=== PATIENT | female | born 1960 | race Asian ===

== ENCOUNTER 2025-07-05 14:58 | Emergency (ER) | payer OTHER, MEDICARE, SELFPAY ==
[2025-07-05] VITALS (32 sets, daily range): BP systolic 131–160; BP diastolic 68–86; PULSE 80–104; RESP 9–23; TEMP 36.6; O2SAT 90–97
--- NOTE | ~2025-07-05 | CT_ITS ---
EXAMINATION: CTA chest PE protocol, 07/05/2025 16:30 GIS CONSULTANT HISTORY: elev dimer COMPARISON: No comparisons available. TECHNIQUE: CTA examination is obtained with contrast CTA examination technique is performed with arterial phase of contrast-enhancement. 3-D reconstruction with thin MIP axial and MPR coronal imaging is provided Isovue 300, 92cc injected IV. One or more of the following dose reduction techniques were used: automated exposure control, adjustment of the mA and/or kV according to patient size, use of iterative reconstruction technique. FINDINGS: No significant coronary calcification is present ([id number]) LUNGS: Contrast bolus is adequate, there is no pulmonary embolism identified. No tracheomalacia. No bronchiectasis. Minimal emphysematous changes. No significant pulmonary fibrotic changes.Motion artifact limits evaluation. HEART AND PERICARDIUM: Within normal limits. AORTA: Normal caliber aorta.. PULMONARY ARTERIES: No pulmonary embolism ADENOPATHY/MEDIASTINUM: None. LIMITED VIEWS OF THE ABDOMEN: Left kidney is partially imaged probable renal cyst 4 x 4 cm. OSSEOUS STRUCTURES: No sclerotic or lytic lesions. No acute rib fractures. OVERLYING SOFT TISSUES: Unremarkable. THYROID: The thyroid is unremarkable. IMPRESSION: 1. Negative for pulmonary embolism. No acute process Reviewed, dictated and finalized at location P. CONSULTANT
--- NOTE | ~2025-07-05 | CT_ITS ---
EXAMINATION: CT brain wo con, 07/05/2025 15:45 HEALTH CARE MARKETING MANAGER HISTORY: ams COMPARISON: No comparisons available. Technique: Axial images obtained of the brain without contrast. One or more of the following dose reduction techniques were used: automated exposure control, adjustment of the mA and/or kV according to patient size, use of iterative reconstruction technique. Findings: No acute infarct or parenchymal hemorrhage. No abnormal mass or mass effect. No midline shift. No extra-axial fluid collections. No hydrocephalus. Mastoid air cells unremarkable. Sinuses and orbits unremarkable. No acute fracture. No significant facial or scalp soft tissue swelling evident. No radiopaque foreign body is seen. Impression: 1.No acute intracranial abnormality. Reviewed, dictated and finalized at location P. TH CARE MARKETING MANAGER Impression: 1.No acute intracranial abnormality.
--- NOTE | ~2025-07-05 | XR_ITS ---
EXAMINATION: XR chest 1V portable COMPARISON: No comparisons available. HISTORY: ams FINDINGS: The lungs are clear, no effusion. No pneumothorax. Heart is normal size. Mediastinal and hilar contours are within normal limits. Bony thorax no acute abnormality. Miscellaneous: None Impression: No acute cardiopulmonary abnormality. Reviewed, dictated and finalized at location P. ULAR RIPSAW OPERATOR Impression: No acute cardiopulmonary abnormality.
--- NOTE | 2025-07-05 15:18 | PC.NURSE ---
RN spoke with Dr. Castaneda office and got information on patient's medical history, allergies, and husbands information. They state patient was suppose to come in today for an appointment, when patient did show up they canceled.
--- NOTE | 2025-07-05 15:20 | ECG_ITS ---
Test Date: 2025-07-05 15:29:54 Measurements Intervals [place] Rate: 85 P: 73 WY: 224 QRS: 70 QRSD: 82 T: 73 QT: 351 QTc: 420 Interpretive Statements SINUS RHYTHM WITH FIRST DEGREE AV BLOCK BASELINE ARTIFACT- I, II, III, AVR, AVL, AVF, V1-V2 BORDERLINE ECG No previous ECG available for comparison Electronically Signed On 07-05-2025 15:52:07 REAL ESTATE LOAN PROCESSOR by Matt Kwon D.O.
--- NOTE | 2025-07-05 15:21 | ED.SYNCOPE ---
HPI - Syncope General Chief Complaint: Syncope Stated Complaint: unresponsive in car. Time Seen by Provider: 07/05/25 15:00 Source: patient Mode of arrival: EMS Limitations: no limitations History of Present Illness HPI narrative: Patient is a 65-year-old female that was driving her car to see the doctor for not feeling good today and was found unresponsive in her car at a stop sign. Blood sugar on the scene was normal. Vital signs were stable. She slowly became more coherent as time went on in the emergency room. She did appear to a soil herself with urine and stool. Seizure was not witnessed but suggested possibly. No seizure history. Patient has been having altered mental status she showed up to the hospital. She became more clear over time but then started to deteriorate again by the evening. No back pain or retention of stool or urine. Her urinary loss or stool loss was due to on control of her system from likely a seizure activity. MD complaint: loss of consciousness and collapsed Onset (ago): minute(s) (Thirty) Duration of episode: 1 -: minutes(s) Description of event: incontinence Prodromal symptoms: lightheaded Witnessed: No Context: at rest Injuries sustained associated with event: none Current symptoms: none Treatments prior to arrival: none Related Data Allergies Allergy/AdvReac Type Severity Reaction Status Date / Time bee venom protein (honey bee) Allergy Severe Anaphylaxis Verified 07/05/25 15:19 Sulfa (Sulfonamide Allergy Severe Rash Verified 07/05/25 15:19 Antibiotics) Review of Systems Review of Systems: All systems reviewed & are unremarkable except as noted in HPI and below Constitutional: Constitutional: Reports no additional constitutional complaints Eyes: Eyes: Reports no additional eye complaints ENT: Reports system reviewed and no additional complaints, except as documented Cardiovascular: Cardiovascular: Reports no additional cardiovascular complaints Respiratory: Respiratory: Reports no additional respiratory complaints Gastrointestinal: Gastrointestinal: Reports no additional gastrointestinal complaints Genitourinary: Genitourinary: Reports no additional female genitourinary complaints Musculoskeletal: Musculoskeletal: Reports no additional musculoskeletal complaints Integumentary/Breasts: Skin/Breast: Reports system reviewed and no additional complaints, except as docu Neurologic: Reports system reviewed and no additional complaints, except as documented Psychiatric: Psychiatric: Reports no additional psychiatric complaints Endocrine: Endocrine: Reports no additional endocrine complaints Hematologic/Lymphatic: Hematologic/Lymphatic: Reports no additional hematologic/lymphatic complaints Allergic/Immunologic: Allergic/Immunologic: Reports no additional allergic/immunologic complaints Exam Const: General: healthy appearing Nutritional Appearance: well nourished Orientation/consciousness: patient oriented x3 Limitations: altered mental status HENMT: Head: normal to inspection Ears: external ears normal Face/Nose/Sinus: Normal external nose present Eyes: Conjunctivae: conjunctivae normal Pupils: Equal, round and reactive pupils present EOM: EOMs intact bilaterally Neck: Neck: normal visual inspection, no lymphadenopathy and no meningeal signs Chest: Chest palpation & inspection: abnormal inspection of the chest Resp: Effort & Inspection: normal respiratory effort, not labored and no retractions Auscultation: clear to auscultation bilaterally, no crackles and no rales Cardio: Rate: regular rate Rhythm: regular rhythm Heart sounds: no murmurs GI: Inspection: non-distended GI Palp: Yes Soft to palpation, No Tenderness to palpation present (GI), No Guarding due to palpation present (GI), Yes Rigid due to palpation, Yes Hernia present, Yes Palpable mass present and Yes Rebound tenderness present Auscultation: normal bowel sounds and Hypoactive bowel sounds present : General: Yes bladder normal to palpation Back/Spine/Pelvis: Back: no CVA tenderness Skin: General skin exam: normal color Rashes: no rashes Wounds: wound noted Neuro: General: patient oriented x3, moves all extremities, no meningeal signs, no focal motor deficits and CN's II-XI intact bilaterally Cranial nerves: Yes Nystagmus not present Speech: normal speech Gait exam (Neuro): Normal gait present Other: Fast is negative, NIH score is 0, GCS 15 Extrem: General: normal to inspection Psych: Mental Status: mental status grossly normal Affect: normal affect Attitude: cooperative Course Vital Signs Vital signs: Vital Signs Temperature 36.6 C 07/05/25 14:58 Pulse Rate 98 07/05/25 14:58 Respiratory Rate 22 H 07/05/25 14:58 Blood Pressure 147/78 H 07/05/25 14:58 Pulse Oximetry 93 07/05/25 14:58 Oxygen Delivery Room Air 07/05/25 14:58 Temperature 36.6 C 07/05/25 14:58 Pulse Rate 85 07/05/25 18:50 Respiratory Rate 13 07/05/25 18:50 Blood Pressure 148/76 H 07/05/25 18:50 Pulse Oximetry 93 07/05/25 18:50 Oxygen Delivery Room Air 07/05/25 14:58 Discharge Plan Discharge Clinical Impression: Acute dehydration, Acute UTI, AMS (altered mental status), Syncope and collapse Patient Disposition: Home Condition: Stable Instructions: Antibiotic Form, Dehydration (ED), Syncope (ED), Altered Mental Status (ED) Patient Language: [place] Prescriptions: New ciprofloxacin HCl [Cipro] 500 mg tablet 500 mg PO BID 7 Days Qty: 14 0RF Follow-up/Referrals: Leonel,MD Satinder [Primary Care Provider, [facility]] Time of Disposition: 19:02 [facility] Narrative Medical decision making narrative: Patient is a 65-year-old female with syncope and altered mental status. We will do a cardio neurogenic workup at this time. After long discussion with the family at bedside, we have come to the conclusion that likely her altered mental status in the collapse/syncope were likely from her new diabetic G LP 1 medication which was taken 2 weeks ago but still residual side effects and taking codeine today when she had not taken for a bit of time as well as her dehydration and her UTI. We are going to send her home and see if this all clears in the next day or 2 but otherwise they will come back to the emergency room if she still has problems. Currently she is not altered and feels normal. No current complaints. No further syncope in the emergency room. She had fluctuated with her altered mental status but that has resolved at this time. Differential Diagnosis Differential Diagnosis: UTI, CVA, other infections Lab Data [facility] Lab Attestation statement: I personally reviewed the patient's lab results. 07/05/25 15:41 07/05/25 15:41 Labs: Lab Results 07/05/25 07/05/25 07/05/25 Range/Units 15:41 17:04 17:52 WBC 11.3 H (4.8-10.8) K/mm3 RBC 4.28 (4.20-5.40) M/mm3 Hgb 13.2 (11.7-13.8) g/dL Hct 38.9 (35.0-42.0) % MCV 90.9 (78.0-102.0) fL MCH 30.8 (27.0-31.0) pg MCHC 33.9 (32-36) g/dL RDW 12.7 (11.6-14.4) % Plt Count 301 (150-420) K/mm3 MPV 8.6 L (9.2-11.8) fl Immature Gran % (Auto) 0.7 H (0.0-0.0) % Neut % (Auto) 81.9 H (50.0-70.0) % Lymph % (Auto) 12.2 L (18.0-42.0) % [place] % (Auto) 3.9 (2.0-11.0) % Eos % (Auto) 1.0 (1.0-6.0) % Baso % (Auto) 0.3 (0.0-1.0) % Lymph # (Auto) 1.38 (1.10-4.50) K/mm3 [place] # (Auto) 0.44 (0.10-0.90) K/mm3 Eos # (Auto) 0.11 (0.02-0.50) K/mm3 Baso # (Auto) 0.03 (0.00-0.10) K/mm3 Abs Immat Gran (auto) 0.08 H (0.00-0.00) K/mm3 Absolute Neuts (auto) 9.25 H (1.70-7.20) K/mm3 Absolute Nucleated RBC 0.00 (0.00-0.00) K/mm3 Nucleated RBC % 0.0 (0-0.0) % PT 10.7 (9.50-12.1) Seconds INR 1.0 APTT 25.9 (23.9-30.70) Sec D-Dimer 3.03 H (0.19-0.50) mg/L Sodium 131 L (137-145) mmol/L Potassium 3.9 (3.4-5.0) mmol/L Chloride 95 L (98-107) mmol/L Carbon Dioxide 24 (22-30) mmol/L Anion Gap 12 (4-12) mmol/L BUN 11 (7-17) mg/dL Creatinine 0.69 L (0.7-1.0) mg/dL Estim Creat Clear Calc 81 ml/min Estimated GFR > 60 (59 - ) Glucose 125 H (65-110) mg/dL Calculated Osmolality 272 L (285-295) mOsm/kg Lactic Acid 3.3 H 1.3 (0.7-2.0) mmol/L Calcium 9.4 (8.4-10.2) mg/dL Total Bilirubin 0.5 (0.2-1.3) mg/dL AST 31 (14-36) U/L ALT 29 (6-35) U/L Alkaline Phosphatase 66 (38-126) U/L Troponin I 0.012 (0.000-0.034) ng/mL Total Protein 7.7 (6.3-8.2) g/dL Albumin 4.7 (3.5-5.1) g/dL Urine Color Light yellow (Yellow) Urine Appearance Clear (Clear) Urine pH 6.5 (5.0-8.0) Ur Specific [place] 1.010 (1.010-1.020) Urine Protein Negative (Negative) Urine Glucose (UA) Negative (Negative) Urine Ketones Negative (Negative) Ur Blood (Man) Negative (Negative) Urine Nitrate Positive H (Negative) Urine Bilirubin Negative (Negative) Urine Urobilinogen 0.2 (0.2-1.0) mg/dL Leukocyte Esterase Rfl Negative (Negative) THERESA/UL Urine RBC None seen (0-2) /hpf Urine WBC None seen (0-3) /hpf Ur Squamous Epith Cells Few (Few) /hpf Urine Bacteria 3+ H (None) /hpf Imaging Data Attestation: I personally reviewed and interpreted this imaging study as follows: Radiologist's impression: ITS Impressions Chest X-Ray 07/05/25 16:03 Impression: No acute cardiopulmonary abnormality. Head CT 07/05/25 16:03 Impression: 1.No acute intracranial abnormality. Chest CTA 07/05/25 17:39 IMPRESSION: 1. Negative for pulmonary embolism. No acute process ECG Data EKG #1: Attestation: I personally reviewed and interpreted this ECG as follows: ECG completion date: 07/05/25 ECG completion time: 18:15 normal rate, sinus rhythm, no ectopy, no ST changes, normal QRS, normal QT, NL axis and no acute changes
--- NOTE | 2025-07-05 15:37 | PC.NURSE ---
RN spoke with Baudilio, who states patient has been more confused over the past few days. Patient forgot how to start her car and use her credit card in the past few days. Patient was going to pcp office to have medication and supplement list looked over to see if her new medication Monjouro is causing confusion.
[2025-07-05 15:46] LABS: Hematocrit 38.9 % (35.0-42.0); Hemoglobin 13.2 g/dL (11.7-13.8); Immature Granulocyte Percent A 0.7 % (0.0-0.0); Lymphocytes Absolute Auto 1.38 K/mm3 (1.10-4.50); Mean Corpuscular HGB Conc 33.9 g/dL (32-36); Mean Corpuscular Hemoglobin 30.8 pg (27.0-31.0); Mean Corpuscular Volume 90.9 fL (78.0-102.0); Nucleated Red Blood Cells Absolute Auto 0.00 K/mm3 (0.00-0.00); Nucleated Red Blood Cells Perc 0.0 % (0-0.0); Platelet Count Result 301 K/mm3 (150-420); Red Blood Count 4.28 M/mm3 (4.20-5.40); White Blood Count 11.3 K/mm3 (4.8-10.8)
--- NOTE | 2025-07-05 15:52 | PC.NURSE ---
Patient is becoming less confused, states she remembers driving to her pcp office stopping at the stop sign and then waking up with EMS. Patient is able to state name, , month, and upcoming holiday. Patient was confused on year.
[2025-07-05 15:59] LABS: Alanine Aminotransferase 29 U/L (6-35); Albumin Level 4.7 g/dL (3.5-5.1); Alkaline Phosphatase 66 U/L (38-126); Anion Gap 12 mmol/L (4-12); Aspartate Amino Transferase 31 U/L (14-36); Bilirubin,Total 0.5 mg/dL (0.2-1.3); Blood Urea Nitrogen 11 mg/dL (7-17); Calcium 9.4 mg/dL (8.4-10.2); Carbon Dioxide 24 mmol/L (22-30); Chloride 95 mmol/L (98-107); Estimated CRCL calculation 81 ml/min; Estimated Glomerular Filt Rate > 60; Glucose 125 mg/dL (65-110); Osmolality Calculated 272 mOsm/kg (285-295); Potassium 3.9 mmol/L (3.4-5.0); Sodium 131 mmol/L (137-145); Total Protein 7.7 g/dL (6.3-8.2)
[2025-07-05 16:04] LABS: INR 1.0; Partial Thromboplastin Time 25.9 Sec (23.9-30.70); Prothrombin Time 10.7 Seconds (9.50-12.1)
[2025-07-05] MEDS: SODIUM CHLORIDE 0.9% IV 1,000 ML 999 ML IV CONT ×2 (16:04→17:36)
--- NOTE | 2025-07-05 16:24 | PC.NURSE ---
will start second liter of NS once initial liter is done.
--- NOTE | 2025-07-05 16:25 | PC.NURSE ---
Patient taken down to CT>
[2025-07-05 16:28] LABS: Troponin I 0.012 ng/mL (0.000-0.034)
[2025-07-05 17:08] LABS: Add Urine Microscopic? YES; Appearance Urine Clear (Clear); Glucose Urine UA Negative (Negative); Leukocyte Esterase Ur Negative LEU/UL (Negative); Nitrate Urine Positive (Negative); Specific Grav Ur 1.010 (1.010-1.020)
--- OUTSIDE RECORDS SUMMARY | 2025-07-05 17:24 | XMS_ITS | Clinical Summary ---
Author Organization [facility] [address] [place] [address] Phone Care Team Providers Care Medical Radiation Tech Name Role Phone Miquel Norton Primary Care Provider Social History Tobacco Use Types Packs/Day Years Used Date Smoking Tobacco: Never Assessed Personal Safety Answer Date Recorded Getting School Help Needed Not on file 10/04 Comments Unknown Sex and Gender Information Value Date Recorded Sex Assigned at Not on file Legal Sex Female 9:49 AM CDT Gender Identity Not on file Sexual Orientation Not on file Plan of Treatment Health Maintenance Due Date Last Done Comments Breast Cancer Screening-Mammogram 1959 Colon Cancer Screening-Colonoscopy 1959 Depression Screening 1959 Fall Risk Assessment 1959 Hepatitis C Screening 1959 Osteoporosis Screening-Bone Density Scan 1959 DTaP/Tdap/Td Vaccine (1 - Tdap) 1970 Hepatitis B Screening 1977 Pneumococcal vaccine 65+ (1 of 1 - PCV) 2009 Zoster Vaccine (1 of 2) 2009 Well Visit 65+ 2024 Influenza Vaccine (#1) 2025 Insurance BUREAU OF DISABILITY Care Teams Medical Radiation Tech Relationship Specialty Start Date End Date Miquel Norton PA [address] [place] [address] PCP - General Physician Aircraft Engine Technician 02/26/22
--- NOTE | 2025-07-05 18:05 | PC.NURSE ---
ERP is made aware patient has become confused again. Daughter at bedside denies any syncope. No new orders, will continue to monitor.
--- OUTSIDE RECORDS SUMMARY | 2025-07-05 18:06 | XMS_ITS | Clinical Summary ---
Author Organization [facility] [address] Address [address] [place] [address] Phone Care Team Providers Care Astrobiologist Name Role Phone Miquel Norton Primary Care [...] 2025 Insurance [employer] Care Teams Astrobiologist Relationship Specialty Start Date End Date Miquel Norton PA [address] [place] [address] PCP - General Physician Welder Operator 02/26/22
--- OUTSIDE RECORDS SUMMARY | 2025-07-05 18:06 | XMS_ITS | Clinical Summary ---
Author Organization [facility] Address [address] [place] [address] Care Team Providers Care Manufacturing Machine Operator Name Role Phone Satinder Castaneda MD Primary Care Provider Allergies Active Allergy Reactions Criticality Noted Date Comments Sulfa Antibiotics Throat swelling 03/25/2021 Medications insulin aspart 100 UNIT/ML injection (VIAL) Inject into the skin 3 (three) times daily before meals. Active insulin glargine 100 UNIT/ML injection (VIAL) Inject 75 Units into the skin nightly at bedtime. Active lisinopril 20 MG tablet Take 40 mg by mouth daily. Active fluticasone-jacinto meterol 100-50 MCG/DOSE inhaler Inhale 1 puff into the lungs 2 (two) times daily. Active aspirin 325 MG tablet Take 650 mg by mouth 2 (two) times daily. Active ibuprofen 600 MG tablet Take 600 mg by mouth 2 (two) times a day. Active acetaminophen 500 MG tablet Take 1,000 mg by mouth 2 (two) times daily. Active NON FORMULARYIndica tions:glaucoma eye drops Indications: glaucoma eye drops Active cetirizine 10 MG tablet Take 10 mg by mouth daily. Active metoprolol succinate ER (TOPROL-XL) 100 MG 24 hr tablet Take 1 tablet (100 mg total) by mouth daily. 30 tablet 06/12/2022 Active amLODIPine (NORVASC) 5 MG tablet Take 1 tablet (5 mg total) by mouth daily. 30 tablet 06/12/2022 Active albuterol sulfate HFA 108 (90 Base) MCG/ACT inhaler Inhale 2 puffs into the lungs every 4 (four) hours as needed for Wheezing. 18 g 06/11/2022 Active azithromycin (ZITHROMAX) 500 mg tablet Take 1 tablet (500 mg total) by mouth daily. 5 tablet 06/11/2022 Active Active Problems Problem Noted Date Diagnosed Date Pneumonia 06/08/2022 Social History Tobacco Use Types Packs/Day Years Used Date Smoking Tobacco: Every Day Cigarettes Smokeless Tobacco: Never Alcohol Use Standard Drinks/Week Comments Not Currently 0 (1 standard drink = 0.6 oz pur e alcohol) Comments No Sex and Gender Information Value Date Recorded Sex Assigned at Not on file Legal Sex Female 9:44 PM JUNIOR PHP DEVELOPER Gender Identity Not on file Sexual Orientation Not on file Last Filed Vital Signs Vital Sign Reading Time Taken Comments Blood Pressure 160/82 06/11/2022 12:05 PM JUNIOR PHP DEVELOPER Pulse 87 06/11/2022 12:05 PM JUNIOR PHP DEVELOPER Temperature 37.1 C (98.7 F) 06/11/2022 12:05 PM JUNIOR PHP DEVELOPER Respiratory Rate 18 06/11/2022 12:05 PM JUNIOR PHP DEVELOPER Oxygen Saturation 91% 06/11/2022 12:05 PM JUNIOR PHP DEVELOPER Inhaled Oxygen Concentration - - Weight 101.6 kg (224 lb) 06/08/2022 6:00 AM JUNIOR PHP DEVELOPER Height 165.1 cm (5' 5) 06/08/2022 6:00 AM JUNIOR PHP DEVELOPER Body Mass Index 37.28 06/08/2022 6:00 AM JUNIOR PHP DEVELOPER Plan of Treatment Health Maintenance Due Date Last Done Comments Colorectal Cancer Screening Colonoscopy (10 Years) 1959 Hepatitis C 1977 DTaP, Tdap and Td Vaccines ( 1 - Tdap) 1978 Pneumococcal Vaccine: 50+ Years (1 of 2 - PCV) 1978 Mammogram Screening 1999 Zoster Vaccines (1 of 2) 2009 Dexa Scan (General) 2024 COVID-19 Vaccine (3 - 2024-2 6 season) 2025 02/14/2021, 01/24/2021 Influenza Adult (#1) 2025 RSV Immunization or 60+ Years (1 - 1-dose 75+ series) 2034 Hepatitis A Vaccines Aged Out No long er eligible based on patient's age to complete this topic Meningococcal B Vaccine Aged Out No l onger eligible based on patient's age to complete this topic Meningococcal Vaccine Aged Out No lyssa jemma eligible based on patient's age to complete this topic RSV Immunizations Under 20 Months Aged Out No longer eligible b ased on patient's age to complete this topic Additional Health Concerns Infection Onset Date Last Indicated MRSA 06/13/2017 06/13/2017 Advance Directives * Full Code (Latest Code Status on File) Date Activated Date Inactivated Comments 06/08/2022 6:21 AM 06/11/2022 4:16 PM Care Teams Manufacturing Machine Operator Relationship Specialty Start Date End Date Satinder Castaneda MD [address] [place] [phone] PCP - General FAMILY PRACTICE 03/25/21
--- OUTSIDE RECORDS SUMMARY | 2025-07-05 18:06 | XMS_ITS | Encounter Summary ---
Author Organization [facility] Address [facility] [place] [address] Care Team Providers Care Assistant Property Manager Name Role Phone Satinder Castaneda MD Primary Care Provider Encounter Details Date Type Department Care Team (Late st Contact Info) Description 12/26/2018 Abstract [facility]FL CONVERSION [address] [place] [address] , Generic ConversionMD Social History Tobacco Use Types Packs/Day Years Used Date Smoking Tobacco: Never Assessed Comments Unknown Sex and Gender Information Value Date Recorded Sex Assigned at Not on file Legal Sex Female 9:44 PM RELAY RECORD CLERK Gender Identity Not on file Sexual Orientation Not on file documented as of this encounter Plan of Treatment Not on file documented as of this encounter Visit Diagnoses Not on filedocumented in this encounter Additional Health Concerns Infection Onset Date Last Indicated Resolved Time MRSA 06/13/2017 06/13/2017 COVID-19 Rule Out 06/08/2022 06/08/2022 06/08/2022 4:48 AM RELAY RECORD CLERK COVID-19 Rule Out 06/09/2022 06/09/2022 06/09/2022 11:58 AM RELAY RECORD CLERK documented as of this encounter Care Teams Assistant Property Manager Relationship Specialty Start Date End Date Satinder Castaneda MD [address] [place] [phone] PCP - General FAMILY PRACTICE 03/25/21 documented as of this encounter
--- NOTE | 2025-07-05 18:25 | PC.NURSE ---
Per ERP hold on CIPRO pill, might change to IV, Will decide and let RN know when ready.
[2025-07-05] MEDS: CIPROFLOXACIN 500 MG TAB PO (19:15)
--- NOTE | 2025-07-05 19:45 | PC.NURSE ---
Went down to check on patient because monitor was on stand by at nurses station. Patients daughter at bedside, stated that she turned the monitor off because it was making noise and beeping. Patient and patients family educated on turning off equipment and monitor was turned back on and can continue to monitor patients VS closely.
--- NOTE | 2025-07-05 20:11 | PC.NURSE ---
patient standing at bedside, waiting on IVfs to finish. Patient and family updated on DC process, just waiting on fluids at this time. Other blas, patient denies any pain or any other concerns at this time.
== END 2025-07-05 21:07 | disposition home or self-care (01) ==
PROVIDERS: Emergency Provider Emergency Medicine; PCP Family Medicine
DX: N39.0 Urinary tract infection, site not specified (principal); E86.0 Dehydration; R41.82 Altered mental status, unspecified; R55 Syncope and collapse
CPT/HCPCS: 36415; 70450; 71045; 71275; 80053; 81001; 83605; 84484; 85025; 85380; 85610; 85730; 93005; 96360; 96361; 99284; A9270; J7030; Q9967